=== PATIENT | male | born 1955 | race Caucasian/White ===

== ENCOUNTER 2017-11-25 12:33 | Emergency (ER) | payer MEDICARE ==
[~2017-11-25] VITALS: Ht 175.3 cm; Wt 93.0 kg
[2017-11-25] MEDS ORDERED: ZOLP5TAB8 PO (13:18)
[2017-11-25] MEDS ORDERED: levothyroxine PO (13:18)
[2017-11-25] MEDS ORDERED: LORA1TAB PO (13:18)
[2017-11-25] MEDS ORDERED: OLAN5TAB5 PO (13:18)
[2017-11-25] MEDS ORDERED: zolpidem PO (13:19)
[2017-11-25 13:55] LABS: BASOPHILS % (AUTO) 0.3 % (0-1); EOSINOPHILS # (AUTO) 0.1 X10'3 (0-0.9); EOSINOPHILS % (AUTO) 1.1 % (0-6); HEMATOCRIT 45.4 % (42.0-52.0); HEMOGLOBIN 15.6 g/dl (14.0-17.9); LYMPHOCYTES # (AUTO) 1.9 X10'3 (1.1-4.8); LYMPHOCYTES % (AUTO) 26.3 % (21-51); MEAN CORPUSCULAR HEMOGLOBIN 29.9 PG (27.0-31.0); MEAN CORPUSCULAR HGB CONC 34.3 % (33.0-36.5); MEAN CORPUSCULAR VOLUME 87.1 FL (78-98); MEAN PLATELET VOLUME 6.5 FL (7.4-10.4); MONOCYTES # (AUTO) 0.4 X10'3 (0-0.9); MONOCYTES % (AUTO) 5.9 % (2-12); NEUTROPHILS # (AUTO) 4.8 X10'3 (1.8-7.7); NEUTROPHILS % (AUTO) 66.4 % (42-75); PLATELET COUNT 320 X10'3 (140-440); RED BLOOD COUNT 5.21 X10'6 (4.70-6.10); RED CELL DISTRIBUTION WIDTH 13.5 % (11.5-14.5); WHITE BLOOD COUNT 7.3 X10'3 (4.5-11.0)
[2017-11-25 14:10] LABS: CLARITY,URINE CLEAR (Clear); COLOR,URINE YELLOW (Yellow); GLUCOSE, URINE NEGATIVE (Neg); KETONES,URINE NEGATIVE (Neg); LEUKOCYTE ESTERASE ,URINE NEGATIVE (Neg); NITRITES, URINE NEGATIVE (Neg); OCCULT BLOOD,URINE NEGATIVE (Neg); PH,URINE 6.5 (4.8-8.0); PROTEIN,URINE NEGATIVE (Neg); UROBILINOGEN,URINE 0.2 E.U/dL (0.2-1.0)
[2017-11-25 14:11] LABS: UA COLLECTION TYPE CLN CATCH MIDSTREAM
[2017-11-25 14:15] LABS: URINE AMPHETAMINE SCREEN NEGATIVE (Neg); URINE BARBITUATE SCREEN NEGATIVE (Neg); URINE BENZODIAZEPINES SCREEN NEGATIVE (Neg); URINE CANNABINOID SCREEN NEGATIVE (Neg); URINE COCAINE SCREEN NEGATIVE (Neg); URINE METHADONE SCREEN NEGATIVE (Neg); URINE OPIATE SCREEN NEGATIVE (Neg); URINE PHENCYCLIDINE SCREEN NEGATIVE (Neg)
[2017-11-25 14:25] LABS: ACETAMINOPHEN < 2.0 UG/ML (10-30); ALANINE AMINOTRANSFERASE 49 U/L (12-78); ALBUMIN 3.7 G/DL (3.4-5.0); ALKALINE PHOSPHATASE 99 IU/L (46-116); ANION GAP 9 (8-16); ASPARTATE AMINO TRANSFERASE 17 U/L (10-37); BILIRUBIN,TOTAL 0.5 MG/DL (0.1-1.0); BLOOD UREA NITROGEN 9 MG/DL (7-18); BUN/CREATININE RATIO 9.9 (5.4-32.0); CALCIUM 9.7 MG/DL (8.5-10.1); CHLORIDE 107 MMOL/L (99-107); CREATININE 0.91 MG/DL (0.60-1.10); ETHANOL < 0.010 GM/DL (0.0-0.010); GLUCOSE 149 MG/DL (70-104); POTASSIUM 4.6 MMOL/L (3.5-5.1); SODIUM 144 MMOL/L (135-145); TOTAL CARBON DIOXIDE 28.3 MMOL/L (24-32); TOTAL PROTEIN 7.4 G/DL (6.4-8.2); eGFR 84 ML/MIN
[2017-11-25 16:46] VITALS: BP 116/73
== END 2017-11-25 16:48 ==
LOC: ER 12:35
DX: F32.9 Major depressive disorder, single episode, unspecified (principal); R45.851 Suicidal ideations; F41.9 Anxiety disorder, unspecified
CPT/HCPCS: 36415; 80053; 80305; 80320; 80329; 81003; 84443; 85025; 99285

== ENCOUNTER 2017-11-25 14:45 | Inpatient (IN) | payer MEDICARE ==
[~2017-11-25] VITALS: Ht 175.3 cm; Wt 94.1 kg
[~2017-11-25 14:45] MED LIST: LORA1TAB PO; OLAN5TAB5 PO; ZOLP5TAB8 PO; levothyroxine PO; zolpidem PO
[2017-11-25 19:15] VITALS: BP 114/73
[2017-11-25] MEDS: OLANZapine 5mg rapidly disint. tablet PO SCH (20:33)
[2017-11-25] MEDS: zolpidem 5mg tablet PO SCH (20:33)
[2017-11-26] MEDS: LORazepam 1 MG tablet PO PRN ×3 (02:52→23:49)
[2017-11-26 07:41] LABS: CHOL/HDL RATIO 6.7 (0.00-4.99); CHOLESTEROL 214 MG/DL (0-200); HDL CHOLESTEROL 32 MG/DL (35-60); LDL CHOLESTEROL 143 MG/DL (50-100); TRIGLYCERIDES 173 MG/DL (20-135)
[2017-11-26 07:49] LABS: HEMOGLOBIN A1C 6.2 % (4.5-6.2)
[2017-11-26] MEDS: levoTHYROXINE 75mcg tablet PO SCH (07:55)
[2017-11-26 08:00] VITALS: BP 107/72
[2017-11-26 19:43] VITALS: BP 112/67
[2017-11-26] MEDS: [UNRECOGNIZED DRUG - OTHER] PO SCH (20:00)
[2017-11-26] MEDS ORDERED: QUEtiapine 25mg tablet PO SCH (21:00)
[2017-11-26] MEDS: zolpidem 5mg tablet PO SCH (21:16)
[2017-11-26] MEDS: OLANZapine 5mg rapidly disint. tablet PO SCH (21:17)
[2017-11-27] MEDS: [UNRECOGNIZED DRUG - OTHER] PO SCH ×2 (07:51→21:04)
[2017-11-27] MEDS: levoTHYROXINE 75mcg tablet PO SCH (07:51)
[2017-11-27 08:55] VITALS: BP 104/67
[2017-11-27] MEDS: LORazepam 1 MG tablet PO PRN (18:56)
[2017-11-27 19:00] VITALS: BP 125/70
[2017-11-27] MEDS: OLANZapine 5mg rapidly disint. tablet PO SCH (20:54)
[2017-11-27] MEDS: quetiapine 100mg tablet PO SCH (20:54)
[2017-11-27] MEDS ORDERED: zolpidem 5mg tablet PO SCH (21:00)
[2017-11-27] MEDS ORDERED: LORazepam 1 MG tablet PO ONE (23:50)
[2017-11-28] MEDS: levoTHYROXINE 75mcg tablet PO SCH (07:19)
[2017-11-28] MEDS: [UNRECOGNIZED DRUG - OTHER] PO SCH ×2 (07:20→20:40)
[2017-11-28 08:00] VITALS: BP 96/62
[2017-11-28] MEDS: LORazepam 1 MG tablet PO PRN (17:25)
[2017-11-28 20:00] VITALS: BP 104/63
[2017-11-28] MEDS: quetiapine 100mg tablet PO SCH (20:39)
[2017-11-28] MEDS: OLANZapine 5mg rapidly disint. tablet PO SCH (20:39)
[2017-11-28] MEDS: LORazepam 1 MG tablet PO SCH (20:40)
[2017-11-28] MEDS: zolpidem 5mg tablet PO SCH (20:40)
[2017-11-29 08:02] VITALS: BP 100/59
[2017-11-29] MEDS: [UNRECOGNIZED DRUG - OTHER] PO SCH ×2 (08:04→21:18)
[2017-11-29] MEDS: levoTHYROXINE 75mcg tablet PO SCH (08:04)
[2017-11-29] MEDS: LORazepam 1 MG tablet PO PRN (18:44)
[2017-11-29 19:27] VITALS: BP 113/70
[2017-11-29] MEDS: zolpidem 5mg tablet PO SCH (21:19)
[2017-11-29] MEDS: LORazepam 1 MG tablet PO SCH (21:19)
[2017-11-29] MEDS: OLANZapine 5mg rapidly disint. tablet PO SCH (21:19)
[2017-11-29] MEDS: quetiapine 100mg tablet PO SCH (21:19)
[2017-11-30 07:00] VITALS: BP 94/54
[2017-11-30] MEDS: levoTHYROXINE 75mcg tablet PO SCH (07:25)
[2017-11-30] MEDS: [UNRECOGNIZED DRUG - OTHER] PO SCH ×2 (07:57→21:17)
[2017-11-30] MEDS: LORazepam 1 MG tablet PO PRN (17:26)
[2017-11-30 19:55] VITALS: BP 113/66
[2017-11-30] MEDS: quetiapine 100mg tablet PO SCH (21:17)
[2017-11-30] MEDS: zolpidem 5mg tablet PO SCH (21:17)
[2017-11-30] MEDS: LORazepam 1 MG tablet PO SCH (21:17)
[2017-11-30] MEDS: OLANZapine 5mg rapidly disint. tablet PO SCH (21:17)
[2017-12-01] MEDS: levoTHYROXINE 75mcg tablet PO SCH (06:55)
[2017-12-01 08:00] VITALS: BP 98/71
[2017-12-01] MEDS: [UNRECOGNIZED DRUG - OTHER] PO SCH ×2 (08:19→21:31)
[2017-12-01 19:14] VITALS: BP 115/73
[2017-12-01] MEDS: quetiapine 100mg tablet PO SCH (21:32)
[2017-12-01] MEDS: LORazepam 1 MG tablet PO SCH (21:32)
[2017-12-01] MEDS: zolpidem 5mg tablet PO SCH (21:32)
[2017-12-01] MEDS: OLANZapine 5mg rapidly disint. tablet PO SCH (21:32)
[2017-12-02] MEDS: levoTHYROXINE 75mcg tablet PO SCH (07:02)
[2017-12-02] MEDS: [UNRECOGNIZED DRUG - OTHER] PO SCH ×2 (07:52→21:13)
[2017-12-02 08:00] VITALS: BP 119/73
[2017-12-02 19:34] VITALS: BP 105/78
[2017-12-02] MEDS: LORazepam 1 MG tablet PO SCH (21:14)
[2017-12-02] MEDS: OLANZapine 5mg rapidly disint. tablet PO SCH (21:14)
[2017-12-02] MEDS: quetiapine 100mg tablet PO SCH (21:15)
[2017-12-02] MEDS: zolpidem 5mg tablet PO SCH (21:16)
[2017-12-03] MEDS: LORazepam 1 MG tablet PO PRN (00:37)
[2017-12-03] MEDS: levoTHYROXINE 75mcg tablet PO SCH (07:26)
[2017-12-03 08:00] VITALS: BP 98/69
[2017-12-03] MEDS: [UNRECOGNIZED DRUG - OTHER] PO SCH ×2 (08:13→21:26)
[2017-12-03 19:42] VITALS: BP 106/62
[2017-12-03] MEDS ORDERED: LORazepam 1 MG tablet PO SCH (21:00)
[2017-12-03] MEDS ORDERED: quetiapine 100mg tablet PO SCH (21:00)
[2017-12-03] MEDS: zolpidem 5mg tablet PO SCH (21:26)
[2017-12-03] MEDS: OLANZapine 5mg rapidly disint. tablet PO SCH (21:26)
[2017-12-04] MEDS: levoTHYROXINE 75mcg tablet PO SCH (07:35)
[2017-12-04 08:00] VITALS: BP 104/66
[2017-12-04] MEDS: [UNRECOGNIZED DRUG - OTHER] PO SCH (08:58)
[2017-12-04] MEDS ORDERED: TRAN10TA2 PO (13:51)
[2017-12-04] MEDS ORDERED: ZOLP10TA5 PO (14:23)
[2017-12-04] MEDS ORDERED: LORA1TAB PO (14:26)
[2017-12-04] MEDS ORDERED: QUET25TA PO (14:26)
[2017-12-04] MEDS ORDERED: LEVO75TA PO (14:26)
[2017-12-04] MEDS: LORazepam 1 MG tablet PO PRN (17:00)
== END 2017-12-04 18:08 | disposition home or self-care (01) | DRG 881 ==
LOC: ADULT MH 14:45
PROVIDERS: ADMIT Psychiatry & Neurology Psychiatry; ATTEND Psychiatry & Neurology Psychiatry
DX: F32.9 Major depressive disorder, single episode, unspecified (principal); R45.851 Suicidal ideations; F41.9 Anxiety disorder, unspecified; E03.9 Hypothyroidism, unspecified; G47.00 Insomnia, unspecified; Z79.899 Other long term (current) drug therapy; Z81.8 Family history of other mental and behavioral disorders
CPT/HCPCS: 36415; 80061; 83036; 87070; 99285